=== PATIENT | female | born 1975 | race Caucasian/White ===

== ENCOUNTER 2020-03-09 01:02 | Outpatient (CLI) | payer BC, SELFPAY ==
[2020-03-10 18:47] LABS: SARS-CoV-2 RNA PCR Negative
== END 2020-03-09 01:03 | disposition home or self-care (01) ==
LOC: ANHCOVIDDT 01:02
PROVIDERS: PCP Physician Assistant; Visit Provider Otolaryngology
DX: Z01.812 Encounter for preprocedural laboratory examination (principal); Z11.59 Encounter for screening for other viral diseases
CPT/HCPCS: 87635; C9803; U0003

== ENCOUNTER 2020-03-12 00:47 | Day surgery (SDC) | payer BC, SELFPAY ==
[2020-02-27 16:16] VITALS: BMI 21.3
[2020-03-12] VITALS (8 sets, daily range): BP systolic 105–125; BP diastolic 55–80; PULSE 69–90; RESP 12–14; TEMP 36.8–36.9; O2SAT 83–100
--- NOTE | 2020-03-12 10:55 | WPDHPUPDATE1 ---
History and Physical Update Update Date/Time: 03/12/20 10:55 Left middle turbinate resection History and Physical has been reviewed, including an updated exam of the patient. There are NO changes in the patient's condition. Risks, benefits, and alternatives have been discussed and questions answered. Patient agrees to proceed with procedure.
--- NOTE | 2020-03-12 11:03 | WPDANESEPPF ---
Anes - Initial Pre Proc Eval Procedure: Operation Date: 03/12/20 12:30 Proposed Procedures p Removal Left Middle Turbinate - Kody Vo MD Date/Time: 03/12/20 11:03 Surgeon: Kody Vo MD Pre Op Diagnosis: Disorder Of The Nose Patient Data Age: 44 Gender: F Height: 5 ft 11 in Weight: 69.5 kg Allergies Allergy/AdvReac Type Severity Reaction Status Date / Time codeine Allergy Abdominal Verified 02/27/20 16:24 Pain Penicillins Allergy Rash Verified 02/27/20 16:24 Sulfa (Sulfonamide Allergy Rash Verified 02/27/20 16:24 Antibiotics) Home Medications Medication Instructions Recorded Confirmed Type fexofenadine-pseudoephedrine 1 tablet PO QAM PRN 02/27/20 02/27/20 History [Ednisha-D 24 Hour] Patient hx anesthesia problems: post op nausea/vomiting Family hx anesthesia problems: none PMFSH Past Medical History Medical History (Updated 03/12/20 @ 11:01 by Sav Moran MD) GERD (gastroesophageal reflux disease) Social History Social History Smoking status: Never smoker Spiritual care concerns: No Anes - Eval Final PreProcedure Day of Procedure 03/12/20 11:03 Patient weight: normal Heart: regular rate and rhythm Lungs: clear to auscultation Airway: Mallampati scale class II Neurological: alert and oriented Last oral intake: >/= 8 hours ASA classification: II Emergent: no Anesthetic plan: proceed Anesthesia type and monitoring: general LMA and ETT and standard monitoring Informed Consent: The patient's anesthetic plan and its attendant risks and benefits were discussed with the patient/family/POA. Questions were solicited and answers provided to the satisfaction of the patient/family/POA.
[2020-03-12] MEDS: ACETAMINOPHEN 500 MG TABLET 1000 MG PO (11:04)
[2020-03-12] MEDS: SCOPOLAMINE 1.5 MG PATCH TRANSDERM (11:10)
[2020-03-12] MEDS: LACTATED RINGERS 1,000 ML 30 ML IV CONT (11:11)
[2020-03-12] MEDS: CLINDAMYCIN 900 MG/NS 50 ML 900 MG/50 ML PIGGYBACK 50 MG IVPB (11:17)
[2020-03-12] MEDS: OXYMETAZOLINE HCL 0.05% NAS 15 ML BTL (*BKC) 1 SPRAY NASAL (11:27)
--- NOTE | 2020-03-12 11:41 | PM.PROC ---
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 Timeout performed, prepped and draped in sterile fashion. Afrin soaked cottonoids placed in the left nasal passage. Under endoscopic visualization, the left middle turbinate was visualized. It had been traumatized and was dangling in the nasal airway, still attached to the root. The turbinate was infiltrated with 1% lidocaine with 1:100k epinephrine. Turbinate scissors used to resect the middle turbinate. Bleeding was noted at the root and was cauterized with suction bovie at 15. Once hemostasis was obtained, the nasal airway was noted to be much more patent. Nasopore was placed over the cauterized surface. Care of the patient was returned to anesthesia who woke her up, removed LMA and transferred her to PACU for recovery in stable condition without complication. Anesthesia: GLMA Surgeon: Kody Vo MD Estimated blood loss (mL): 5 Drains: No Packing: Yes (nasopore on left) Pathology: yes (left middle turbinate) Complications: No immediate complications Condition: stable Disposition: same day
[2020-03-12] MEDS: LIDO 1%/EPINEPHRINE 1:100,000 20 ML VIAL 5 ML INFILTRATE (11:44)
== END 2020-03-12 13:25 | disposition home or self-care (01) ==
PROVIDERS: PCP Physician Assistant; Visit Provider Otolaryngology
PROC: (CPT 30999; principal; 2020-03-12 12:30)
DX: J34.89 Other specified disorders of nose and nasal sinuses (principal); Z87.81 Personal history of (healed) traumatic fracture
CPT/HCPCS: 30999; 88305; 88311; A9270; J1100; J2250; J2405; J2704; J3010; J7120

== ENCOUNTER 2022-01-21 18:07 | Emergency (ER) | payer BC, SELFPAY ==
[2022-01-21 18:18] VITALS: BP 128/66; PULSE 97; RESP 18; TEMP 37.2; O2SAT 100
--- NOTE | 2022-01-21 18:59 | ED.FEMALEGU ---
HPI - Female Genitourinary General Chief complaint: Urogenital-Female Stated complaint: uti complaint Time Seen by Provider: 01/21/22 19:00 Source: patient, RN notes reviewed and old records reviewed Mode of arrival: ambulatory Limitations: no limitations History of Present Illness HPI Narrative: 46-year-old female who presents to [facility] care with complaints of left-sided low back pain, painful urination which started on Thursday 3day history. Patient reports no fevers chills or sweats, denies any nausea or vomiting or any abdominal pain. Patient reports history of past UTI's has been taking AZO for her discomfort. Patient denies any vaginal discharge or itching, denies any concern for STD's. MD elicited complaint: UTI Pertinent past history: recurrent UTIs Onset (ago): day(s) (3) Severity scale (1-10): 3 Related Data Home Medications Medication Instructions Recorded Confirmed abemaciclib 100 mg tablet 100 tablet PO DIRECTED 01/21/22 01/21/22 (Verzenio) anastrozole 1 mg tablet 1 tablet DAILY 01/21/22 01/21/22 Allergies Allergy/AdvReac Type Severity Reaction Status Date / Time codeine Allergy Abdominal Verified 01/21/22 18:34 Pain Penicillins Allergy Rash Verified 01/21/22 18:34 Sulfa (Sulfonamide Allergy Rash Verified 01/21/22 18:34 Antibiotics) Review of Systems Review of Systems: CONSTITUTIONAL: Denies fever, chills, or sweats. EYES: Denies visual changes, redness, or discharge. ENT: Denies rhinorrhea, congestion, sore throat, or otalgia. CARDIOVASCULAR: Denies chest pain, palpitations, or edema. RESPIRATORY: Denies cough or dyspnea. GASTROINTESTINAL: Denies abdominal pain, nausea, vomiting, or diarrhea. GENITOURINARY: Positive for dysuria no visible hematuria. SKIN: Denies rash or itching. MUSCULOSKELETAL: Positive for left lower back pain flank area, no joint pain, or myalgia. NEUROLOGIC: Denies headache, numbness, or weakness. PSYCHIATRIC: Denies anxiety or depression. [facility] Past Medical History Medical History (Updated 01/22/22 @ 01:09 by Andreea Chaudhry NP) Breast cancer, left breast chemotherapy GERD (gastroesophageal reflux disease) Surgical History Surgical History (Updated 01/22/22 @ 01:09 by Andreea Chaudhry NP) History of bilateral mastectomy left axillary lymph nodes, left breast cancer reconstruction History of nasal surgery deviated septum Social History Social History (Updated 01/22/22 @ 01:10 by Andreea Chaudhry NP) Smoking status: Never smoker Alcohol intake: current Alcohol use details: rare Substance use: never Living arrangements: with family Gender identity (if verbalized by the patient): Female Spiritual care concerns: No Comments At time of signature, agree with nursing past medical, surgical, social and family history. There is no relevant family history pertinent to the presenting complaint Exam Narrative: GENERAL: Well-appearing, well-nourished, and in no acute distress. HEAD: Normocephalic, atraumatic. EYES: PERRLA and EOMI. ENT: Nares clear, no rhinorrhea or epistaxis. Mucous membranes moist.TM's normal with good light reflex, throat pink with no lesions or exudates or tonsil swelling NECK: Supple.no lymphadenopathy CHEST: Clear to auscultation. No respiratory distress.SAO2 100% on room air HEART: Regular rate and rhythm. No murmur heard. Normal peripheral pulses. ABDOMEN: Soft, nontender, nondistended, normal active bowel sounds.Positive for left flank pain on examination with no radiation EXTREMITIES: Normal range of motion. No edema. SKIN: Warm, dry, no rash. NEURO: No focal deficits. Alert and oriented x3. Course Course Level of Care: Express Care Visit Vital Signs Vital signs: Vital Signs Temperature 37.2 C 01/21/22 18:18 Pulse Rate 97 01/21/22 18:18 Respiratory Rate 18 01/21/22 18:18 Blood Pressure 128/66 01/21/22 18:18 Pulse Oximetry 100 01/21/22 18:18 Oxygen Delivery Room Air 01/21/22
== END 2022-01-21 19:19 | disposition home or self-care (01) ==
PROVIDERS: Emergency Provider Registered Nurse; PCP Physician Assistant
DX: N39.0 Urinary tract infection, site not specified (principal); K21.9 Gastro-esophageal reflux disease without esophagitis; Z85.3 Personal history of malignant neoplasm of breast; Z92.21 Personal history of antineoplastic chemotherapy
CPT/HCPCS: 81003; 87077; 87086; 87186; 99213; G0463

== ENCOUNTER 2022-11-04 19:10 | Emergency (ER) | payer BC, SELFPAY ==
--- NOTE | 2022-11-04 19:18 | ED.WOUNDLAC ---
HPI - Wound/Laceration General Chief Complaint: Wound/Laceration Stated Complaint: finger laceration/lt hand Time Seen by Provider: 11/04/22 19:18 Source: patient Mode of arrival: ambulatory Limitations: no limitations History of Present Illness HPI narrative: 47-year-old female presented for complaint of laceration to the palmar surface of the left index finger after injury today just [employer]. 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 She did not cleanse the site or apply anything prior to arrival. Denies numbness, tingling, weakness, or decreased ROM to the finger. Right hand dominant. Unsure of last tetanus. Related Data Home Medications Medication Instructions Recorded Confirmed abemaciclib 100 mg tablet 100 tablet PO DIRECTED 01/21/22 11/04/22 (Verzenio) anastrozole 1 mg tablet 1 tablet DAILY 01/21/22 11/04/22 Allergies Allergy/AdvReac Type Severity Reaction Status Date / Time codeine AdvReac Intermediate Abdominal Verified 11/04/22 19:13 Pain Penicillins AdvReac Mild Rash Verified 11/04/22 19:13 Sulfa (Sulfonamide AdvReac Mild Rash Verified 11/04/22 19:13 Antibiotics) Review of Systems Review of Systems: CONSTITUTIONAL: Denies body aches, fever, chills, or sweats. EYES: Denies visual changes, redness, or discharge. ENT: Denies rhinorrhea, congestion CARDIOVASCULAR: Denies chest pain, palpitations, or edema. RESPIRATORY: Denies cough or dyspnea. GASTROINTESTINAL: Denies abdominal pain, nausea, vomiting, or diarrhea. SKIN: per HPI MUSCULOSKELETAL: Denies back pain, joint pain, or myalgia. NEUROLOGIC: Denies headache, numbness, tingling, or weakness. [facility] Past Medical History Medical History Breast cancer, left breast chemotherapy GERD (gastroesophageal reflux disease) Surgical History Surgical History History of bilateral mastectomy left axillary lymph nodes, left breast cancer reconstruction History of nasal surgery deviated septum Social History Social History Smoking status: Never smoker Alcohol intake: current Alcohol use details: rare Substance use: never Living arrangements: with family Gender identity (if verbalized by the patient): Female Spiritual care concerns: No Comments At time of signature, I have reviewed and agree with nursing past medical, surgical, social and family history unless otherwise noted. Please see nursing chart for further information. There is no relevant family history pertinent to the presenting complaint Exam Narrative: GENERAL: Well-appearing HEAD: Normocephalic, atraumatic. EYES: conjunctivae clear, and EOMI. ENT: Mucous membranes moist. Oropharynx without edema, erythema or lesions. CHEST: Clear to auscultation. HEART: Regular rate and rhythm. SKIN: Warm, dry. 1.5 cm linear transverse laceration to palmar surface of middle phalanx of left 2nd digit. Full ROM. Sensation intact. Cap refill <3 seconds. NEURO: Alert and oriented x3. Course Course Emergency Course: Patient is aware of diagnosis, understands and agrees to treatment plan. Anticipatory guidance given. Patient agrees to follow-up as directed and is aware of reasons to seek care at the emergency department. Portions of this record may have been created with voice recognition software Level of Care: Express Care Visit Vital Signs Vital signs: Vital Signs Temperature 97.0 F L 11/04/22 19:20 Pulse Rate 95 11/04/22 19:20 Respiratory Rate 16 11/04/22 19:20 Blood Pressure 136/71 11/04/22 19:20 Pulse Oximetry 98 11/04/22 19:20 Oxygen Delivery Room Air 11/04/22 19:20 Temperature 97.0 F L 11/04/22 19:20 Pulse Rate 95 11/04/22 19:20 Respiratory Rate 16 11/04/22 19:20 Blood Pressure 136/71 11/04/22 19:20 Pulse Oximetry 98 11/04/22 19:20 Oxygen Deliver
[2022-11-04 19:20] VITALS: BP 136/71; PULSE 95; RESP 16; TEMP 36.1; O2SAT 98
[2022-11-04] MEDS: TETANUS,DIPHTHERIA,AC PERTUSSIS ADULT (0.5 ML) BOOSTRIX IM (19:31)
== END 2022-11-04 19:50 | disposition home or self-care (01) ==
PROVIDERS: Emergency Provider Nurse Practitioner Family; PCP Physician Assistant
DX: S61.211A Laceration without foreign body of left index finger without damage to nail, initial encounter (principal); W27.4XXA Contact with kitchen utensil, initial encounter; Z23 Encounter for immunization; K21.9 Gastro-esophageal reflux disease without esophagitis; Z85.3 Personal history of malignant neoplasm of breast; Z90.13 Acquired absence of bilateral breasts and nipples
CPT/HCPCS: 12001; 90471; 90715; 96372; 99213; G0463

== ENCOUNTER 2024-10-01 14:08 | Emergency (ER) | payer BC, SELFPAY ==
--- OUTSIDE RECORDS SUMMARY | 2024-10-01 14:12 | XMS_ITS | Clinical Summary ---
Author Organization [facility] Address [address] [place] [id number] Care Team Providers [employer] Person Name Role Phone Kyle Nolan PA-C Primary Care Provider [phone] Allergies Active Allergy Reactions Criticality Noted Date Comments Codeine Vomiting 03/28/2018 Penicillins Rash Low 03/28/2018 Sulfa Antibiotics Rash Low 03/28/2018 Medications hydrocodone-acetami nophen (NORCO) 5-325 MG tablet Take 1 tablet by mouth every 4 (four) hours as needed for Pain. 20 tablet 9 Active ondansetron (ZOFRAN ODT) 4 MG disintegrating tablet Take 1 tablet (4 mg total) by mouth every 8 (eight) hours as needed for Nausea. 15 tablet 9 Active Family History Medical History Relation Comments Cancer Father prostate CA Relation Status Comments Father Social History Tobacco Use Types Packs/Day Years Used Date Smoking Tobacco: Never Smokeless Tobacco: Never Alcohol Use Standard Drinks/Week Comments No 0 (1 standard drink = 0.6 oz pur e alcohol) Comments No Sex and Gender Information Value Date Recorded Sex Assigned at Not on file Legal Sex Female 5:35 PM CDT Gender Identity Not on file Sexual Orientation Not on file Last Filed Vital Signs Vital Sign Reading Time Taken Comments Blood Pressure 137/76 01/14/2019 3:40 PM CDT Pulse 89 01/14/2019 3:40 PM CDT Temperature 37.2 C (99 F) 01/14/2019 3:40 PM CDT Respiratory Rate 18 01/14/2019 3:40 PM CDT Oxygen Saturation 96% 01/14/2019 3:40 PM CDT Inhaled Oxygen Concentration - - Weight 73.4 kg (161 lb 13.1 oz) 01/14/2019 9:56 AM CDT Height 179.1 cm (5' 10.5 ) 01/14/2019 9:56 AM CD T Body Mass Index 22.89 01/14/2019 9:56 AM CDT Plan of Treatment Health Maintenance Due Date Last Done Comments Cervical Cancer Screening Pa p Smear (Age 30 to 64) Every 3 Years 1975 Colorectal Cancer Screening Colonoscopy (10 Years) 1975 Annual Physical 1978 Hepatitis C 1993 DTaP, Tdap and Td Vaccines ( 1 - Tdap) 1994 Hepatitis B Vaccines (1 of 3 - 19+ 3-dose series) 1994 Cervical Cancer Screening Pa p with HPV Testing (Age 30 to 64) Every 5 Years 2005 Cervical Cancer Screening with HPV 2005 Mammogram Screening 2015 COVID-19 Vaccine (2023-2 5 season) 2024 Influenza Adult (#1) 2024 Meningococcal B Vaccine Aged Out No l onger eligible based on patient's age to complete this topic Meningococcal Vaccine Aged Out No tigre galindo eligible based on patient's age to complete this topic Pneumococcal Vaccine: Pediat rics (0 to 5 Years) and At-Risk Patients (6 to 64 Years) Aged Out No longer eligible b ased on patient's age to complete this topic RSV Immunizations Under 20 Months Aged Out No longer eligible based on patient's age to complete this topic [place] [address] [facility] Care Teams [employer] Counter Person Relationship Specialty Start Date End Date Kyle Nolan PA-C PCP - General PHYSICIAN BARIATRIC PROGRAM COORDINATOR 03/28/18
--- OUTSIDE RECORDS SUMMARY | 2024-10-01 14:12 | XMS_ITS | Referral Summary ---
Author Organization [facility] Medical Office Building Address [facility] [place] [address] Care Team Providers Care Radial Arm Saw Operator Name Role Phone An Kyle Wilber ALEJANDRA Primary Care Provider [phone] Abram Antunez MD Unavailable [phone] Fidelia Horton MD Unavailable + [phone] Macario Crowley MD PhD Unavailable Jj Jones MD Unavailable [phone] Chary Davidson MD Unavailable [phone] Encounters Date Type Department Care Team Description 09/14/2024 6:20 PM ELECTRIC DISTRIBUTION ENGINEER E-Visit [facility] Virtual Care [address] [place] [address] Evelyne Nunez MD E-Visit for Urinary Tract Infection 09/14/2024 Patient Self-Triage [facility] [address] [place] [address] Mychart, Generic Provider from Last 3 Months Allergies Active Allergy Reactions Criticality Noted Date Comments Codeine Vomiting,Stomach upset Low 03/28/2018 Stomach/GI Upset Doxycycline Stomach upset Low 10/02/2023 Penicillins Rash Medium 03/28/2018 Rash Sulfa (Sulfonamide Antibiotics) Rash Medium 03/28/2018 Docetaxel Chest tightness Medium 12/13/2020 Medications calcium carbonate-vitam in D3 1,250 mg (500 mg elemental)-125 unit per tablet Take 1 tablet by mouth daily Active cetirizine (ZyrTEC) 10 mg tablet Take 1 tablet (10 mg total) by mouth daily as needed Active ibuprofen (ADVIL,MOTRIN) 600 mg tablet Take 1 tablet (600 mg total) by mouth every 6 (six) hours as needed for pain (pain) 30 tablet 4 Active Additional Information Patient not taking.Reported on 05/20/2024 anastrozole (ARIMIDEX) 1 mg tabletIndicatio ns:Malignant neoplasm of upper-inner quadrant of left breast in female, estrogen receptor positive (HCC) TAKE 1 TABLET(1 MG) BY MOUTH DAILY 30 tablet 3 Active nitrofurantoin monohydrate (Macrobid) 100 mg capsule Take 1 capsule (100 mg total) by mouth 2 (two) times a day for 7 days 14 capsule 5 09/21/19 Active Problems Problem Noted Date Diagnosed Date Hyperleukocytosis 10/22/2022 Mouth sore secondary to chemotherapy 10/22/2022 Periodic fever (CMS/HCC) 10/22/2022 Acute non-recurrent maxillary sinusitis 10/23/19 Assessment & Plan (10/22/2022 3:42 PM ELECTRIC DISTRIBUTION ENGINEER): Saline and meds as ordered Personal history of radiation therapy 06/24/2021 Persons encountering health services in other specified circumstances 11/28/2020 Malignant neoplasm of upper- inner quadrant of left breast in female, estrogen receptor positive (CMS/HCC) 06/27/2020 Cancer Staging:Pathologic stage from 11/13/2020:No Stage Recommended(ypT2, pN3, cM0, G2, ER+, GA+, HER2-) - Signed by Chary Davidson MD on 03/18/2021 Routine general medical exam ination at a health care facility 09/01/2019 Assessment & Plan (11/27/2021 9:09 AM CDT): HEALTHCARE MAINTENANCE updated, EKG NSR, cleared for surgery Resolved Problems Problem Noted Date Diagnosed Date Resolved Date Malignant neoplasm of female breast 10/22/2022 12/01/2023 Immunizations Name Administration Dates Next Due Influenza, Quadrivalent, Jaquelin l Culture-based MDCK, Preservative Free, Antibiotic Free, Intramuscular 06/27/2020 Influenza, Unspecified 06/24/2022(Deferr ed: Patient decision),08/15/2019(Deferred: Patient decision),08/15/2018(Deferred: Patient decision) Social History Tobacco Use Types Packs/Day Years Used Date Smoking Tobacco: Never Smokeless Tobacco: Never Tobacco Cessation:Counseling Given: Not Answered Alcohol Use Standard Drinks/Week Comments Yes 0 (1 standard drink = 0.6 oz pur e alcohol) AUDIT-C Answer Date Recorded Q1: How often do you have a drink containing alc ohol? Monthly or less 05/20/2024 Q2: How many drinks containi ng alcohol do you have on a typical day when you are drinking? 1 or 2 05/20/2024 Q3: How often do you have si x or more drinks on one occasion? Less than monthly 05/20/2024 PHQ-2 Answer Date Recorded PHQ-2 Total Score (If total score is 3 or more points, staff should administer the PHQ-9) 0 11/27/2021 Personal Safety Answer Date Recorded Have you ever been in or are you currently in a harmful physical or emotional relationship or is someone making you feel afraid or unsafe? Denies 03/10/2024 Comments No Sex and Gender Information Value Date Recorded Sex Assigned at Not on file 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 ELECTRIC DISTRIBUTION ENGINEER Gender Identity Not on file Sexual Orientation Not on file Last Filed Vital Signs Vital Sign Reading Time Taken Comments Blood Pressure 135/47 06/29/2024 3:54 PM ELECTRIC DISTRIBUTION ENGINEER Pulse 86 06/29/2024 3:54 PM ELECTRIC DISTRIBUTION ENGINEER Temperature 36.8 C (98.2 F) 05/20/2024 4:09 PM CDT Respiratory Rate 18 05/20/2024 4:09 PM CDT Oxygen Saturation 100% 06/29/2024 3:54 PM ELECTRIC DISTRIBUTION ENGINEER Inhaled Oxygen Concentration - - Weight 77.1 kg (170 lb) 06/29/2024 3:54 PM ELECTRIC DISTRIBUTION ENGINEER Height 180.3 cm (5' 10.98 ) 03/25/2024 1:25 PM C DT Body Mass Index 23.72 03/25/2024 1:25 PM CDT Plan of Treatment Not on file Medical Devices Implanted Type Area Performance Improvement Analyst Device Identifier Shelf Expiration Date Model / Serial / Lot [employer] Implant Breast High Profile Smooth Memorygel Boost 740cc Gel [id number] - [id number] Implanted:Qty: 1 on 03/18/2022 by Alex Carranza, DO at [facility] Right: Breast [employer] 12/02/2026 [id number] / / [employer] Implant Breast High Profile Smooth Memorygel Boost 685cc Gel [id number] - [id number] Implanted:Qty: 1 on 03/18/2022 by Alex Carranza, DO at [facility] Left: Breast [employer] 12/29/2026 [id number] / / Procedures Procedure Name Priority Date/Time Associated Diagnosis Comments PAP AND HIGH RISK HPV, REFLEX TO GENOTYPING Routine 03/10/2024 10:44 AM CDT SCREENING MAMMOGRAM BILATERAL W VLADISLAV 05/29/2020 6:56 AM CDT from Last 3 Months or Most Recently Relevant to Health Maintenance Results * Pap and High Risk HPV and Genotyping (Cytology Component) (03/10/2024 10:44 AM CDT) Pap test 03/10/2024 10:4 4 AM CDT 03/10/2024 5:31 PM CDT Narrative 03/18/2024 11:57 AM CDT EPIC results best viewed via link to PDF [facility] [place] [address] Note to Patients: This report may contain a detailed description of human tissue sent by a health care provider to the laboratory for pathologic evaluation. The content of this report is essential for diagnosis and may provide important critical findings. This information may be unfamiliar to patients to review without a medical professional present. It is advised that the patient review this report in the presence of a health care provider who can answer questions and explain the details. CYTOPATHOLOGY REPORT FINAL Patient Name: TORRI HONGChet Gender: F : 1975 (Age: 48) Address: [address] [place] [address] [place] [address] Hospital #: [id number] Service: Surgery Location: Patient Type: EMILY JENSEN OUTP Taken: 03/10/2024 Received: 03/10/2024 Accessioned: 03/10/2024 Reported: 03/18/2024 Physician(s): Chary Jefferson M.D. FINAL INTERPRETATION SOURCE OF SPECIMEN Liquid based Thin Prep pap with HPV: STATEMENT OF ADEQUACY - Satisfactory for evaluation - No endocervical/transformation zone sample present in a post menopausal patient GENERAL CATEGORIZATION: - Negative for squamous intraepithelial lesion or malignancy Comments (Normal-Negative for High Risk HPV) HPV HR 16- Not detected HPV HR 18-Not detected HPV HR non 16/18- Not detected Interpretive Data Nucleic acid amplification for detection of high-risk Human Papilloma virus (HPV) is performed by the Giovanni Damon 6800 HPV test. This assay specifically detects HPV- 16 and HPV-18 genotypes. The following HPV genotypes are detected as high-risk HPV: HPV-31, 33, 35, 39, 45, 51, 52, 56, 58, 59, 66, and 68. This assay has been approved by the [place] Food and Drug Administration for detection of HPV in cervical specimens collected by a physician using an endocervical brush/spatula or cervical broom and placed in the ThinPrep Pap Test PreservCyt collection containers. The performance characteristics of this test have been verified by the [facility] Molecular Infectious Disease laboratory. Correlate with reported cytology results, as applicable. Interpretive data last revised 23 This specimen has been rescreened in accordance with this laboratory's Manager Ed Program. /03/18/2024 11:57 SURINDER Viveros(ASCP) Report Electronically Reviewed and Signed Out By SURINDER Harrison MS (ASCP) 03/18/2024 11:57:37 Cervicovaginal Cytology (Pap Test) Disclaimer: The Pap test is a screening test used to detect cervical cancer and its precursors; it is not a diagnostic procedure. False negative and false positive results do occur. Pap test results should be interpreted in the context of pertinent clinical information and biopsy results as indicated. [facility] Clinical Laboratory Improvement Amendments (CLIA) mandate that cytologic and histologic results be correlated for laboratory quality assurance lead & improvement standards. FOR ALL HIGH-GRADE CASES we request submission of follow-up histological material and/or reports that have not been previously provided so that we may fulfill said required standards. Gross Description A. Liquid based Thin Prep pap with HPV: Cervical/vaginal - Screening ThinPrep Clinical Diagnosis and History Last Menstrual Period: unknown Menstrual History: Post-menopausal The patient is a 48 year old female with insufficient Pap in the setting of atrophy. Report Images and scanned documents, if included only viewable in PDF version The performance characteristics of some immunohistochemical stains, in-situ hybridization and fluorescence in-situ hybridization tests and immunophenotyping by flow cytometry cited in this report (if any) were determined by the Surgical Pathology Department at [facility] as part of an ongoing quality assurance supervisor body program and in compliance with federally mandated regulations drawn from the Clinical Laboratory Improvement Act of 1988 (CLIA '88). Some of these tests rely on the use of analyte specific reagents and are subject to specific labeling requirements by the US Food and Drug Administration. Such diagnostic tests may only be performed in a facility that is certified by the Department of Health and Human Services as a high complexity laboratory under CLIA '88. The FDA has determined that such clearance or approval is not necessary. This test is used for clinical purposes. It should not be regarded as investigational or for research. Nevertheless, federal rules concerning the medical use of analyte specific reagents require that the following disclaimer be attached to the report: This test was developed and its performance characteristics determined by the Surgical Pathology Department of [facility]. It has not been cleared or approved by the U. S. Food and Drug Administration. Nancy Jefferson MD LAB CYTOLOGY ORDERABLES Fi nal Result * Screening Mammogram Bilateral W Vladislav (05/29/2020 6:56 AM CDT) Anatomical Region Laterality Modality Breast Bilateral Mammography 05/29/2020 7:12 AM CDT Narrative 05/29/2020 8:19 AM CDT Patient Name: TORRI HONG Osbaldo Ordering Dr: Marshal Merritt MD D.O.B: 1975 Exam Date: 05/29/20 0656 Age: 45 Sex: Female MR#: [id number] Loc: RADIOLOGY REPORT Order #[id number] [facility] Jann Bilat Screening 3D Signed - MG BILATERAL DIGITAL SCREENING MAMMOGRAM 3D/2D WITH MEDIOLATERAL OBLIQUE CRANIOCAUDAL: 05/29/2020 The study was acquired using full field digital technology and interpreted from soft copy. 2D digital mammographic views, as well as 3D digital tomosynthesis were performed in the CC and MLO projections. CLINICAL: Routine mammogram. Patient denies any problems. Aunt with breast cancer. No personal history of breast cancer. COMPARISONS: Comparison is made to exams dated: 02/24/2019 mammogram, 10/05/2018 mammogram, and 01/20/2018 mammogram - [facility]. BREAST TISSUE: The tissue of both breasts is extremely dense, which lowers the sensitivity of mammography. FINDINGS: No new suspicious findings are identified in the right breast on mammogram. Scattered benign appearing microcalcifications are unchanged in the right breast. There are also scattered benign-appearing microcalcifications in the left breast. A new possible area of architectural distortion is identified in the upper outer left breast at middle depth. IMPRESSION: BI-RAD 0 ADDITIONAL IMAGING EVALUATION NEEDED 1. Possible area of architectural distortion in the upper outer left breast at middle depth. Further evaluation with left unilateral diagnostic mammogram and possible sonogram recommended. 2. No new suspicious findings in the right breast on mammogram. Annual screening mammography recommended. The patient has been or will be contacted. Electronically signed by: Neo Jeffries rl/:05/29/2020 08:19:44 Washtub Worker Helper: Tabatha Dubon)Britton), [facility] letter sent: Additional Imaging Reading location: BI-RADS: 0 Additional Imaging Evaluation Needed REPORT ELECTRONICALLY SIGNED IN OTHER VENDOR SYSTEM Resulting Agency Comment O Procedure Note Neo Almanzar MD - 05/29/2020 Patient Name: HONGTORRI Dr: Marshal Merritt MD D.O.B: 1975 Exam Date: 05/29/20 0656 Age: 45 Sex: Female MR#: [id number] Loc: RADIOLOGY REPORT Order #[id number] [facility] Jann Bilat Screening 3D Signed - MG BILATERAL DIGITAL SCREENING MAMMOGRAM 3D/2D WITH MEDIOLATERAL OBLIQUE CRANIOCAUDAL: 05/29/2020 The study was acquired using full field digital technology andinterpreted from soft copy. 2D digital mammographic views, as well as 3D digital tomosynthesis were performed in the CC and MLO projections. CLINICAL: Routine mammogram. Patient denies any problems. Aunt withbreast cancer. No personal history of breast cancer. COMPARISONS: Comparison is made to exams dated: 02/24/2019 mammogram,10/05/2018 mammogram, and 01/20/2018 mammogram - [facility]. BREAST TISSUE: The tissue of both breasts is extremely dense, whichlowers the sensitivity of mammography. FINDINGS: No new suspicious findings are identified in the right breaston mammogram. Scattered benign appearing microcalcifications are unchangedin the right breast. There are also scattered benign-appearingmicrocalcifications in the left breast. A new possible area of architectural distortion is identified in the upper outer left breast at middle depth. IMPRESSION: BI-RAD 0 ADDITIONAL IMAGING EVALUATION NEEDED 1. Possible area of architectural distortion in the upper outer leftbreast at middle depth. Further evaluation with left unilateral diagnosticmammogram and possible sonogram recommended. 2. No new suspicious findings in the right breast on mammogram. Annual screening mammography recommended. The patient has been or will be contacted. Electronically signed by: Neo Jeffries rl/:05/29/2020 08:19:44 Washtub Worker Helper: Tabatha BERG (Rafael)(Gonzales), [facility] letter sent: Additional Imaging Reading location: BI-RADS: 0 Additional Imaging Evaluation Needed REPORT ELECTRONICALLY SIGNED IN OTHER VENDOR SYSTEM Marshal Merritt MD IM MAMMO PROCEDURES F inal Result from Last 3 Months or Most Recently Relevant to Health Maintenance Insurance [facility] Advance Directives For more information, please contact: [phone] * Full Code (Latest Code Status on File) Date Activated Date Inactivated Comments 03/10/2024 12:35 PM 03/10/2024 8:09 PM Care Teams Radial Arm Saw Operator Relationship Specialty Start Date End Date Kyle Nolan PA PCP - General Family Medicine 06/27/20 Abram Antunez MD [address] [place] [address] Surgeon Surgery 06/28/20 Fidelia Horton MD [address] [place] [address] Tool Worker Obstetrics and Gynecology 01/22/22 Macario Crowley MD PhD [address] [facility], [facility] [address] [place] [address] Medical Oncologist/Hourly Manager Medical Oncology 06/20/22 Jj Jones MD [address] [facility] [address] [place] [address] Surgeon General Surgery 12/29/22 Chary Davidson MD [address] [facility] [address] [place] [address] Radiation Oncologist Radiation Oncology 12/15/23
--- OUTSIDE RECORDS SUMMARY | 2024-10-01 14:12 | XMS_ITS | Encounter Summary ---
Author Organization [facility] Address [address] [place] [address] Phone Care Team Providers Care Licensed Optical Dispenser Name Role Phone Kyle Nolan Primary Care Provider [phone] JUSTYN Graves Jr., Robert James Primary Care Provide r Kyle Nolan Primary Care Provider [phone] Abram Antunez MD Unavailable [phone] Theo Sims MD PhD Unavailable [phone] Chary Davidson MD Unavailable [phone] Marshal Merritt MD Unavailable [phone] Sita Cadet MD Unavailable [phone] Fidelia Horton MD Unavailable + [phone] Macario Crowley MD PhD Unavailable Jj Jones MD Unavailable [phone] Chary Davidson MD Unavailable [phone] Encounter Details Date Type Department Care Team (Latest Contact Info) Description 05/19/2020 Orders Only [facility] Scanning, Provider Social History Tobacco Use Types Packs/Day Years Used Date Smoking Tobacco: Never Smokeless Tobacco: Never Alcohol Use Standard Drinks/Week Comments Yes 0 (1 standard drink = 0.6 oz pur e alcohol) PHQ-2 Answer Date Recorded PHQ-2 Score 0 09/06/2019 Comments No Sex and Gender Information Value Date Recorded Sex Assigned at Not on file 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 GLOVE TAGGER Gender Identity Not on file Sexual Orientation Not on file documented as of this encounter Plan of Treatment Not on file documented as of this encounter Procedures Procedure Name Priority Date/Time Associated Diagnosis Comments SCAN - PATHOLOGY 05/19/2020 documented in this encounter Results * SCAN - PATHOLOGY (05/19/2020) us Provider Scanning Final Result documented in this encounter Visit Diagnoses Not on filedocumented in this encounter Care Teams Licensed Optical Dispenser Relationship Specialty Start Date End Date Kyle Nolan PA PCP - General 10/05/18 06/24/20 Burton Graves Jr., PA PCP - General 06/25/20 06/26/20 Kyle Nolan PA PCP - General Family Medicine 06/27/20 Abram Antunez MD [address] [place] [address] [id number] Surgeon Surgery 06/28/20 Theo Sims MD PhD [address] [place] [address] [phone] Medical Oncologist/Credit Processor Medical Oncology 06/28/20 08/06/21 Chary Davidson MD [address] [place] [id number] Radiation Oncologist Radiation Oncology 03/18/21 Marshal Merritt MD [address] [facility] [address] [place] [address] Consulting Physician Obstetrics and Gynecology 03/18/21 01/21/22 Sita Cadet MD [address] [facility] [address] [place] [address] Medical Oncologist/Credit Processor Medical Oncology 12/19/21 12/28/22 Fidelia Horton MD [address] [facility] [address] [place] [address] Hand Binder Stripper Obstetrics and Gynecology 01/22/22 Macario Crowley MD PhD [address] [facility], [facility] [address] [place] [address] Medical Oncologist/Credit Processor Medical Oncology 06/20/22 Jj Jones MD [facility] [address] [place], [place] [id number] Surgeon General Surgery 12/29/22 Chary Davidson MD [address] [place] [address] [address] [place], [place] [address] Radiation Oncologist Radiation Oncology 12/15/23 documented as of this encounter
--- OUTSIDE RECORDS SUMMARY | 2024-10-01 14:12 | XMS_ITS | Encounter Summary ---
Author Organization [facility] Address [address] [place] [address] Phone Care Team Providers Care Associate Professor Of Automation Name Role Phone Kyle Nolan Primary Care Provider [phone] JUSTYN Graves Jr., Robert James Primary Care Provide r Kyle Nolan Primary Care Provider [phone] Abram Antunez MD Unavailable [phone] Theo Sims MD PhD Unavailable [phone] Chary Davidson MD Unavailable [phone] Marshal Merritt MD Unavailable [phone] Sita Cadet MD Unavailable + [phone] Fidelia Horton MD Unavailable + [phone] Macario Crowley MD PhD Unavailable Jj Jones MD Unavailable [phone] Chary Davidson MD Unavailable [phone] Encounter Details Date Type Department Care Team (Latest Contact Info) Description 06/19/2020 Orders Only [facility] Scanning, Provider [...] on file 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 CAD DESIGNER DRAFTER Gender Identity Not on file Sexual Orientation Not on file documented as of this encounter Plan of Treatment Not on file documented as of this encounter Procedures Procedure Name Priority Date/Time Associated Diagnosis Comments SCAN - PATHOLOGY 06/19/2020 documented in this encounter Results * SCAN - PATHOLOGY (06/19/2020) us Provider Scanning Final Result documented in this encounter Visit Diagnoses Not on filedocumented in this encounter Care Teams Associate Professor Of Automation Relationship Specialty Start Date End Date Kyle Nolan PA PCP - General 10/05/18 06/24/20 Burton Graves Jr., PA PCP - General 06/25/20 06/26/20 Kyle Nolan PA PCP - General Family Medicine 06/27/20 Abram Antunez MD [address] [place] [address] [id number] Surgeon Surgery 06/28/20 Theo Sims MD PhD [address] [place] [address] [id number] Medical Oncologist/Nib Adjuster Medical Oncology 06/28/20 08/06/21 Chary Davidson MD [address] [place] [address] [id number] Radiation Oncologist Radiation Oncology 03/18/21 Marshal Merritt MD [address] [facility] [address] [place] [address] Consulting Physician Obstetrics and Gynecology 03/18/21 01/21/22 Sita Cadet MD [address] [facility] [address] [place] [address] Medical Oncologist/Nib Adjuster Medical Oncology 12/19/21 12/28/22 Fidelia Horton MD [address] [facility] [address] [place] [address] It Help Desk Analyst Obstetrics and Gynecology 01/22/22 Macario Crowley MD PhD [address] [facility], [facility] [address] [place] [address] Medical Oncologist/Nib Adjuster Medical Oncology 06/20/22 Jj Jones MD [facility] [address] [place], [place] [phone] Surgeon General Surgery 12/29/22 Chary Davidson MD [address] [place] [address] [address] [place], [place] [address] Radiation Oncologist Radiation Oncology 12/15/23 documented as of this encounter
--- OUTSIDE RECORDS SUMMARY | 2024-10-01 14:12 | XMS_ITS | Clinical Summary ---
Author Organization [facility] at the Medical Office Building Address [address] [place] [address] Care Team Providers Care Tower Supervisor Name Role Phone Kyle Nolan Primary Care Provider [phone] Abram Antunez MD Unavailable [phone] Fidelia Horton MD Unavailable [phone] Macario Crowley MD PhD Unavailable Jj Jones MD Unavailable [phone] Chary Davidson MD Unavailable [phone] Allergies Active Allergy Reactions Criticality Noted Date [...] as needed for pain (pain) 30 tablet 07/25/202 4 Active Additional Information Patient not taking.Reported on 05/20/2024 anastrozole (ARIMIDEX) 1 mg tabletIndicatio ns:Malignant neoplasm of upper-inner quadrant of left breast in female, estrogen receptor positive (HCC) TAKE 1 TABLET(1 MG) BY MOUTH DAILY 30 tablet 3 4 Active nitrofurantoin monohydrate (Macrobid) 100 mg capsule Take 1 capsule (100 mg total) by mouth 2 (two) times a day for 7 days 14 capsule 5 09/21/19 25 Active Problems Problem Noted Date Diagnosed Date Hyperleukocytosis 10/22/2022 Mouth sore secondary to chemotherapy 10/22/2022 Periodic fever (CMS/HCC) 10/22/2022 Acute non-recurrent maxillary sinusitis 10/23/19 23 Assessment & Plan (10/22/2022 3:42 PM TRUST EVALUATION SUPERVISOR): Saline and meds as ordered Personal history of radiation therapy 06/24/2021 Persons encountering health services in other specified circumstances 11/28/2020 Malignant neoplasm of upper- inner quadrant of left breast in female, estrogen receptor positive (CMS/HCC) 06/27/2020 Cancer Staging:Pathologic stage from 11/13/2020:No Stage Recommended(ypT2, pN3, cM0, G2, ER+, FL+, HER2-) - Signed by Chary Davidson MD on 03/18/2021 Routine general medical exam ination at a health care facility 09/01/2019 Assessment & Plan (11/27/2021 9:09 AM CDT): HEALTHCARE MAINTENANCE updated, EKG NSR, cleared for surgery Resolved Problems Problem Noted Date Diagnosed Date Resolved Date Malignant neoplasm of female breast 10/22/2022 12/01/2023 Encounters Date Type Department Care Team Description 09/14/2024 6:20 PM TRUST EVALUATION SUPERVISOR E-Visit [facility] Virtual Care [address] [place] [phone] Evelyne Nunez MD E-Visit for Urinary Tract Infection 09/14/2024 Patient Self-Triage [facility] [place] [address] Mychart, Generic Provider from Last 3 Months Immunizations Name Administration Dates Next Due Influenza, Quadrivalent, Jaquelin l Culture-based MDCK, Preservative Free, Antibiotic Free, Intramuscular 06/27/2020 Influenza, Unspecified 06/24/2022(Deferr ed: Patient decision),08/15/2019(Deferred: Patient decision),08/15/2018(Deferred: Patient decision) Surgical History Surgery Date Site/Laterality Comments NASAL SEPTUM SURGERY 2017 & 2019 BREAST LUMPECTOMY 04/17/2003 - 05/16/2003 BREAST BIOPSY 10/08/2015 Right MASTECTOMY 08/17/2020 - 08/16/2021 Bilateral OOPHORECTOMY 02/15/2024 - 03/16/2024 SALPINGECTOMY Medical History Medical History Date Comments Breast cancer (HCC) History of chemotherapy last 2020 PONV (postoperative nausea and vomiting) no vomiting, only nausea Motion sickness Personal history of radiation therapy 06/24/2021 Hyperleukocytosis 10/22/2022 Allergic rhinitis Family History Medical History Relation Name Comments Prostate cancer Father Prostate cancer Maternal Grandfather Diabetes Mother's Sister Relation Name Status Comments Father Alive Maternal Grandfather Mother Alive Mother's Sister Social History Tobacco Use Types Packs/Day Years [...] on file 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 TRUST EVALUATION SUPERVISOR Gender Identity Not on file Sexual Orientation Not on file Obstetrics History Para Term AB IAB SAB Ectopic Multiple Livin g Live Births 2 2 2 0 2 Date Outcome GA Total Labor Labor/2nd/3rd Weight Sex Type Anes PTL Eugenia A1 A5 Name Clin Term Term Comments x 2 Menarche 16 First delivery 29 Last Filed Vital Signs Vital Sign Reading Time Taken Comments Blood Pressure 135/47 06/29/2024 3:54 PM TRUST EVALUATION SUPERVISOR Pulse 86 06/29/2024 3:54 PM TRUST EVALUATION SUPERVISOR Temperature 36.8 C (98.2 F) 05/20/2024 4:09 PM CDT Respiratory Rate 18 05/20/2024 4:09 PM CDT Oxygen Saturation 100% 06/29/2024 3:54 PM TRUST EVALUATION SUPERVISOR Inhaled Oxygen Concentration - - Weight 77.1 kg (170 lb) 06/29/2024 3:54 PM TRUST EVALUATION SUPERVISOR Height 180.3 cm (5' 10.98 ) 03/25/2024 1:25 PM C DT Body Mass Index 23.72 03/25/2024 1:25 PM CDT Plan of Treatment Health Maintenance Due Date Last Done Comments Colon Cancer Screening-Colonoscopy 1975 Hepatitis C Screening 1975 Pneumococcal vaccine <65 (1 of 2 - PCV) 1981 Hepatitis B Screening 1993 Zoster Vaccine (1 of 2) 1994 Breast Cancer Screening-Mammogram 05/29/2021 05/29/2020, 02/24/2019, 01/20/2018, Additional history exists Depression Screening 11/27/2022 11/27/2021, 09/06/19 20 Regular Well Visit/Exam 18-64 03/24/2024, 11/27/2021, 09/06/2019 Influenza Vaccine (#1) 2024 06/27/2020 Cervical Cancer Screening 03/10/20252023, 03/10/2024, 02/04/2024, Additional history exists DTaP/Tdap/Td Vaccine (2 - Td or Tdap) 11/04/2032 11/04/2022 Medical Devices Implanted Type Area Senior Corporate Accountant Device Identifier Shelf Expiration Date Model / Serial / Lot [employer] Implant Breast High Profile Smooth Memorygel Boost 740cc Gel [id number] - [id number] Implanted:Qty: 1 on 03/18/2022 by Alex Carranza, DO at [facility] Right: Breast [employer] 12/02/2026 [id number] / / [employer] Implant Breast High Profile Smooth Memorygel Boost 685cc Gel [id number] - [id number] Implanted:Qty: 1 on 03/18/2022 by Alex Carranza, DO at [facility] Left: Breast [employer] 12/29/2026 [id number] / / Procedures Procedure Name Priority Date/Time [...] results best viewed via link to PDF [facility] [place] [address] Note to Patients: This report may contain [...] details. CYTOPATHOLOGY REPORT FINAL Patient Name: TORRI HONG Gender: F : 1975 (Age: 48) Address: [address] [place] [address] [place] [address] [facility] #: [id number] Service: Surgery Location: Patient Type: E [facility] OUTP Taken: 03/10/2024 Received: 03/10/2024 Accessioned: 03/10/2024 [...] this test have been verified by the [facility] [place] [facility] Molecular Infectious Disease laboratory. Correlate with reported cytology results, as applicable. Interpretive data last revised 23 This specimen has been rescreened in accordance with this laboratory's Surgery Center Administrator Program. /03/18/2024 11:57 SURINDER Viveros(ASCP) Report Electronically [...] clinical information and biopsy results as indicated. [facility] Clinical Laboratory Improvement Amendments (CLIA) mandate that cytologic and histologic results be correlated for laboratory machined parts quality inspector & improvement standards. FOR ALL HIGH-GRADE CASES [...] determined by the Surgical Pathology Department at [facility] [place] [facility] as part of an ongoing quality improvement analyst program and in compliance with federally mandated [...] determined by the Surgical Pathology Department of [facility] [place] [facility]. It has not been cleared or approved by the U. S. Food and Drug Administration. Nancy Jefferson MD LAB CYTOLOGY ORDERABLES Fi nal Result * Screening Mammogram Bilateral W Vladislav (05/29/2020 6:56 AM CDT) Anatomical Region Laterality Modality Breast Bilateral Mammography 05/29/2020 7:12 AM CDT Narrative 05/29/2020 8:19 AM CDT Patient Name: HONGTORRI Ordering Dr: Marshal Merritt MD D.O.B: 1975 Exam Date: 05/29/20 0656 Age: 45 Sex: Female MR#: [id number] Loc: RADIOLOGY REPORT Order #[id number] [facility] Jann Bilat Screening 3D Signed - [...] mammogram, 10/05/2018 mammogram, and 01/20/2018 mammogram - [facility]. BREAST TISSUE: The tissue of both breasts [...] Electronically signed by: Neo Jeffries rl/:05/29/2020 08:19:44 Lead Applications Developer: Tabatha Jarquin (R)), [facility] letter sent: Additional Imaging Reading location: BI-RADS: 0 Additional Imaging Evaluation Needed REPORT ELECTRONICALLY SIGNED IN OTHER VENDOR SYSTEM Resulting Agency Comment O Procedure Note Neo Almanzar MD - 05/29/2020 Patient Name: TORRI HONG Dr: Marshal Merritt MD D.O.B: 1975 Exam Date: 05/29/20 0656 Age: 45 Sex: Female MR#: [id number] Loc: RADIOLOGY REPORT Order #[id number] [facility] Jann Bilat Screening 3D Signed - [...] 02/24/2019 mammogram,10/05/2018 mammogram, and 01/20/2018 mammogram - [facility]. BREAST TISSUE: The tissue of both breasts [...] Electronically signed by: Neo Jeffries rl/:05/29/2020 08:19:44 Lead Applications Developer: Tabatha BERG (R)(M), [facility] letter sent: Additional Imaging Reading location: BI-RADS: 0 Additional Imaging Evaluation Needed REPORT ELECTRONICALLY SIGNED IN OTHER VENDOR SYSTEM Marshal Merritt MD IM MAMMO PROCEDURES F inal Result from Last 3 Months or Most Recently Relevant to Health Maintenance Insurance PENDING SALE TO [employer] Advance Directives For more information, please contact: [phone] * Full Code (Latest Code Status on File) Date Activated Date Inactivated Comments 03/10/2024 12:35 PM 03/10/2024 8:09 PM Care Teams Tower Supervisor Relationship Specialty Start Date End Date Kyle Nolan PA PCP - General Family Medicine 06/27/20 Abram Antunez MD [address] [facility] [address] [place], [place] [id number] Surgeon Surgery 06/28/20 Fidelia Horton MD [address] [place] [address] Fee Clerk Obstetrics and Gynecology 01/22/22 Macario Crowley MD PhD [address] [facility], [facility] [address] [place] [address] Medical Oncologist/Toy Department Manager Medical Oncology 06/20/22 Jj Jones MD [address] [place] [address] Surgeon General Surgery 12/29/22 Chary Davidson MD [address] [place] [address] Radiation Oncologist Radiation Oncology 12/15/23
--- OUTSIDE RECORDS SUMMARY | 2024-10-01 14:12 | XMS_ITS | Encounter Summary ---
Author Organization [facility] Address [address] [place] [address] Phone Care Team Providers Care Vendor Management Associate Name Role Phone Kyle Nolan Primary Care Provider [phone] Abram Antunez MD Unavailable [phone] Theo Smis MD PhD Unavailable [phone] Chary Davidson MD Unavailable [phone] Marshal Merritt MD Unavailable [phone] Sita Cadet MD Unavailable [phone] Fidelia Horton MD Unavailable [phone] Macario Crowley MD PhD Unavailable Jj Jones MD Unavailable [phone] Chary Davidson MD Unavailable [phone] Encounter Details Date Type Department Care Team (Latest Contact Info) Description 07/06/2020 Orders Only [facility] Scanning, Provider [...] on file 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 Gender Identity Not on file Sexual Orientation Not on file documented as of this encounter Plan of Treatment Not on file documented as of this encounter Procedures Procedure Name Priority Date/Time Associated Diagnosis Comments SCAN - LABS 07/06/2020 documented in this encounter Results * SCAN - LABS (07/06/2020) Provider Scanning Final Result documented in this encounter Visit Diagnoses Not on filedocumented in this encounter Care Teams Vendor Management Associate Relationship Specialty Start Date End Date Kyle Nolan PA PCP - General Family Medicine 06/27/20 Abram Antunez MD [address] [place] [id number] Surgeon Surgery 06/28/20 Theo Sims MD PhD [address] [place] [id number] Medical Oncologist/Spareribs Trimmer Medical Oncology 06/28/20 08/06/21 Chary Davidson MD [address] [place] [address] [phone] Radiation Oncologist Radiation Oncology 03/18/21 Marshal Merritt MD [address] [phone] Consulting Physician Obstetrics and Gynecology 03/18/21 01/21/22 Sita Cadet MD [address] [facility] [address] [place] [address] Medical Oncologist/Spareribs Trimmer Medical Oncology 12/19/21 12/28/22 Fidelia Horton MD [address] [facility] [address] [facility] [address] [place] [address] Comptometrist Obstetrics and Gynecology 01/22/22 Macario Crowley MD PhD [address] [facility], [facility] [address] [place] [address] Medical Oncologist/Spareribs Trimmer Medical Oncology 06/20/22 Jj Jones MD [address] [place] [address] [address] [place] [address] Surgeon General Surgery 12/29/22 [place] [address] [place] [address] [address] [place], [place] [phone] Radiation Oncologist Radiation Oncology 12/15/23 documented as of this encounter
--- OUTSIDE RECORDS SUMMARY | 2024-10-01 14:12 | XMS_ITS ---
Author Organization [facility] at the Medical Office Building Address [address] [place] [address] Care Team Providers Care Meter Inspector Name Role Phone Kyle Nolan Primary Care Provider [phone] Abram Antunez MD Unavailable [phone] Fidelia Horton MD Unavailable [phone] Macario Crowley MD PhD Unavailable Jj Jones MD Unavailable [phone] Chary Davidson MD Unavailable [phone] Active Problems Problem Noted Date Diagnosed Date Hyperleukocytosis 10/22/2022 Mouth sore secondary to chemotherapy 10/22/2022 Periodic fever (CMS/HCC) 10/22/2022 Acute non-recurrent maxillary sinusitis 10/23/19 23 Assessment & Plan (10/22/2022 3:42 PM CUSHION WORKER): Saline and meds as ordered Personal history of radiation therapy 06/24/2021 Persons encountering health services in other specified circumstances 11/28/2020 Malignant neoplasm of upper- inner quadrant of left breast in female, estrogen receptor positive (CMS/HCC) 06/27/2020 Cancer Staging:Pathologic stage from 11/13/2020:No Stage Recommended(ypT2, pN3, cM0, G2, ER+, NE+, HER2-) - Signed by Chary Davidson MD on 03/18/2021 Routine general medical exam ination at a health care facility 09/01/2019 Assessment & Plan (11/27/2021 9:09 AM CDT): HEALTHCARE MAINTENANCE updated, EKG NSR, cleared for surgery Current Oncology Plans Zoledronic Acid (ZOMETA) Infusion* Plan Start Date:07/09/2021 Plan Provider:Macario Crowley MD PhD Linked Problems Malignant neoplasm of upper- inner quadrant of left breast in female, estrogen receptor positive (HCC)Persons encountering health services in other specified circumstances Treatment Medications No medications scheduled. Past Plans Line Care Plan Name Start Date Discontinue Date Treatment Medications Discontinue Reason Plan Provider IV MAINTENANCE THERAPY PLAN 01/02/2021 06/20/2022 No medications scheduled. Therapy Complete Macario Crowley MD PhD Oncology Chemotherapy Treatment Plan Name Start Date Discontinue Date Treatment Medications Discontinue Reason Plan Provider Cycles Goserelin 84 Day Cycles - Breast - Changed to q3mo from [id number] on 05/13/21 0 05/18/2024 goserelin (ZOLADEX) Protocol Amendment/[facility] Macario Crowley MD PhD 23 of 26 cycles started Oncology Treatment (2) Plan Name Start Date Discontinue Date Treatment Medications Discontinue Reason Plan Provider Cycles Abemaciclib PO 28 Day Cycles - Breast 021 05/18/2024 abemaciclib (VERZENIO) Therapy Complete Theo Sims MD PhD Treatment not started TC: (DOCEtaxel / Cyclophospham kim) 21 Day Cycles - Breast 12/13/19 21 04/08/2021 cycloPHOSphamide IVPB in 250 mL (vial 200 mg/mL)([id number])DOCEt jean paul (TAXOTERE) IVPB in 250 mL (vial 20mg/mL) Therapy Complete Theo Sims MD PhD 4 of 4 cycles started Radiation Treatments * Plan Last Treated On Elapsed Days Fractions Treated Prescribed Fraction Dose Prescribed Total Dose L CW BOLUS 05/24/2021 42 13 200 cGy 2,600 cGy L CW NO BOLUS 05/24/2021 42 12 200 cGy 2,400 cGy LCW SCAR BST 05/24/2021 42 5 200 cGy 1,000 c Gy Reference Point Last Treated On Elapsed Days Session Dose Total Dose LT CW SCAR 05/24/2021 42 0 cGy 1,000 cGy [id number] 05/24/2021 42 0 cGy 5,000 cGy Resolved Problems Problem Noted Date Diagnosed Date Resolved Date Malignant neoplasm of female breast 10/22/2022 12/01/2023
[2024-10-01 14:18] VITALS: BP 124/62; PULSE 87; RESP 18; TEMP 36.4; O2SAT 99
--- NOTE | 2024-10-01 14:20 | ED.FEMALEGU ---
HPI - Female Genitourinary General Chief complaint: Urogenital-Female Stated complaint: UTI Time Seen by Provider: 10/01/24 14:09 Source: patient Mode of arrival: ambulatory Limitations: no limitations History of Present Illness HPI Narrative: Patient is a 49-year-old female who presents with urgency and frequency this morning. Patient had telehealth visit 2 weeks ago and was prescribed Macrobid for UTI. Patient states the symptoms are not as bad as they got last time. Denies any fever, chills, nausea, vomiting, diarrhea, low back pain. MD elicited complaint: dysuria Related Data Home Medications ?Medication ?Instructions ?Recorded ?Confirmed ?Last Taken ?Type anastrozole 1 mg tablet 1 tablet DAILY 01/21/22 11/04/22 Unknown History Allergies Allergy/AdvReac Type Severity Reaction Status Date / Time Penicillins Allergy Mild Rash Verified 10/01/24 14:36 Sulfa (Sulfonamide Allergy Mild Rash Verified 10/01/24 14:36 Antibiotics) codeine AdvReac Intermediate Abdominal Verified 10/01/24 14:36 Pain Review of Systems Review of Systems: All systems reviewed & are unremarkable except as noted in HPI and below Constitutional: Constitutional: Denies chills, Denies fever(s), Denies headache(s), Denies malaise and Denies weakness Eyes: Eyes: Denies change in vision, Denies eye discharge and Denies irritation ENT: Denies otalgia, Denies headache(s), Denies nasal congestion, Denies nasal discharge, Denies sinus pain and Denies sore throat Cardiovascular: Cardiovascular: Denies chest pain, Denies edema, Denies palpitations and Denies dyspnea Respiratory: Respiratory: Denies cough and Denies dyspnea Gastrointestinal: Gastrointestinal: Denies abdominal pain, Denies diarrhea, Denies nausea and Denies vomiting Genitourinary: Genitourinary: Denies hematuria, Reports nocturia, Denies dysuria, Denies flank pain and Reports urinary urgency Musculoskeletal: Musculoskeletal: Denies back pain and Denies numbness Integumentary/Breasts: Skin/Breast: Denies pruritus and Denies rash Neurologic: Denies headache(s), Denies numbness and Denies weakness Psychiatric: Psychiatric: Reports no additional psychiatric complaints Endocrine: Endocrine: Denies palpitations PMFSH Past Medical History Medical History Breast cancer, left breast chemotherapy GERD (gastroesophageal reflux disease) Surgical History Surgical History History of bilateral mastectomy left axillary lymph nodes, left breast cancer reconstruction History of nasal surgery deviated septum Social History Social History Smoking status: Never smoker Alcohol intake: current Alcohol use details: rare Substance use: never Living arrangements: with family Gender identity (if verbalized by the patient): Female Spiritual care concerns: No Comments At time of signature, agree with nursing past medical, surgical, social and family history. There is no relevant family history pertinent to the presenting complaint. Exam Const: General: cooperative, healthy appearing, comfortable, no acute distress and well nourished Nutritional Appearance: well nourished Orientation/consciousness: patient oriented x3 HENMT: Head: normocephalic and atraumatic Ears: external ears normal Face/Nose/Sinus: Normal external nose present, Normal nares present and normal facial exam Face and sinus: normal facial exam Eyes: General: appearance normal, both eyes and all related structures Pupils: Equal, round and reactive pupils present EOM: EOMs intact bilaterally Neck: Neck: normal visual inspection, full ROM and supple Chest: Chest palpation & inspection: normal inspection of the chest Resp: Effort & Inspection: normal respiratory effort and able to speak in complete sentences Cardio: Rate: regular rate Rhythm: regular rhythm GI: Inspection: normal to inspection GI Palp: No abdominal tenderness and Yes Soft to palpation : General: Yes no CVA tenderness Back/Spine/Pelvis: Back: no CVA tenderness Skin: General skin exam: normal color and no rashes or lesions noted Neuro: General: patient oriented x3 and moves all extremities Cranial nerves: Yes Equal, round and reactive pupils present Extrem: General: normal to inspection and full ROM Psych: Appearance: grossly normal and well kempt Course Course Emergency Course: Patient is aware of diagnosis, understands and agrees to treatment plan. Anticipatory guidance given. Patient agrees to follow-up as directed and is aware of reasons to seek care at the emergency department. Portions of this record may have been created with voice recognition software Level of Care: Express Care Visit Vital Signs Vital signs: Vital Signs Temperature 36.4 C 10/01/24 14:18 Pulse Rate 87 10/01/24 14:18 Respiratory Rate 18 10/01/24 14:18 Blood Pressure 124/62 10/01/24 14:18 Pulse Oximetry 99 10/01/24 14:18 Oxygen Delivery Room Air 10/01/24 14:18 Temperature 36.4 C 10/01/24 14:18 Pulse Rate 87 10/01/24 14:18 Respiratory Rate 18 10/01/24 14:18 Blood Pressure 124/62 10/01/24 14:18 Pulse Oximetry 99 10/01/24 14:18 Oxygen Delivery Room Air 10/01/24 14:18 Reviewed MDM - Female Genitourinary MDM Narrative Medical decision making narrative: Exam findings and UA show probable UTI; patient is non-toxic appearing and is in no distress. No CMT, adnexal tenderness, or evidence of pelvic etiology. Patient is appropriate for outpatient treatment and follow-up. Differential Diagnosis Differential diagnosis: Likely urinary tract infection, bacterial vaginosis, trichomoniasis, cervicitis, vaginitis and cystitis Medical Records Attestation: I reviewed the patient's medical records. Lab Data Attestation: I reviewed the patient's lab results. Labs: Lab Results 10/01/24 Range/Units 14:24 POC Urine Color Light/pale POC Urine Clarity Cloudy POC Urine pH 5.5 POC Ur Specif [place] 1.005 POC Urine Protein Negative (Negative) POC Ur Glucose (UA) Negative (Negative) POC Urine Ketones Negative (Negative) POC Urine Blood Trace (Negative) POC Urine Nitrite Negative (Negative) POC Urine Bilirubin Negative (Negative) POC Urine Urobilinogen 0.2 POC U Leukocyte Esteras 3+ (Negative) Discharge Plan Discharge Clinical Impression: Urinary tract infection Qualifiers: Urinary tract infection type: acute cystitis Hematuria presence: without hematuria Qualified Code(s): N30.00 - Acute cystitis without hematuria Patient Disposition: Home, Self-Care Condition: Stable Instructions: Urinary Tract Infection in Women (DC) Additional Instructions: We will send a urine culture to the lab, based on your symptoms and urine dip we will start treatment today. If culture comes back and bacteria is not susceptible to antibiotic, your prescription may change. Your symptoms should improve within a day of starting antibiotics, but you should finish all the antibiotic pills you get. Otherwise your infection might come back Continue with increased water intake. Take Tylenol or ibuprofen as needed for pain or fever. Follow-up with primary care provider for urine recheck or see ER visit if condition worsens with high fever, nausea, vomiting, severe back pain Patient Language: Wolof Prescriptions: New cephalexin 500 mg capsule 500 mg PO BID 5 Days Qty: 10 0RF No Action anastrozole 1 mg tablet 1 tablet DAILY Follow-up/Referrals: An,Kyle Merino PA-C [Primary Care Provider] - 3 Days Time of Disposition: 14:44
[2024-10-01 14:26] LABS: EDUAAPPEAR Cloudy; EDUABILI Negative (Negative); EDUABLOOD Trace (Negative); EDUACOLOR1 Light/Pale; EDUAGLUCOSE Negative (Negative); EDUAKETONE Negative (Negative); EDUALEUKO 3+ (Negative); EDUANITRATE Negative (Negative); EDUAPH 5.5; EDUAPROTEIN Negative (Negative); EDUASPGRAVITY 1.005; EDUAUROBILI 0.2
== END 2024-10-01 14:47 | disposition home or self-care (01) ==
PROVIDERS: Emergency Provider Nurse Practitioner Family; PCP Physician Assistant
DX: N30.00 Acute cystitis without hematuria (principal); K21.9 Gastro-esophageal reflux disease without esophagitis; Z85.3 Personal history of malignant neoplasm of breast; Z90.13 Acquired absence of bilateral breasts and nipples
CPT/HCPCS: 81003; 87086; 99213; G0463

== ENCOUNTER 2024-10-27 18:44 | Emergency (ER) | payer BC, SELFPAY ==
--- OUTSIDE RECORDS SUMMARY | 2024-10-27 18:46 | XMS_ITS ---
Author Organization [facility] at the Medical Office Building Address [address] [place] [address] Care Team Providers Care Golf Player Assistant Name Role Phone Kyle Nolan Primary Care Provider [phone] Abram Antunez MD Unavailable [phone] Fidelia Horton MD Unavailable + [phone] Macario Crowley MD PhD Unavailable Jj Jones MD Unavailable [phone] Chary Davidson MD Unavailable [phone] Active Problems Problem Noted Date Diagnosed Date Hyperleukocytosis 10/22/2022 Mouth sore secondary to chemotherapy 10/22/2022 Periodic fever 10/22/2022 Acute non-recurrent maxillary sinusitis 10/23/19 23 Assessment & Plan (10/22/2022 3:42 PM INSTALLER APPRENTICE): Saline and meds as ordered Personal history of radiation therapy 06/24/2021 Persons encountering health services in other specified circumstances 11/28/2020 Malignant neoplasm of upper- inner quadrant of left breast in female, estrogen receptor positive (CMS/HCC) 06/27/2020 Cancer Staging:Pathologic stage from 11/13/2020:No Stage Recommended(ypT2, pN3, cM0, G2, ER+, RI+, HER2-) - Signed by Chary Davidson MD on 03/18/2021 Routine general medical exam ination at a health care facility 09/01/2019 Assessment & Plan (11/27/2021 9:09 AM CDT): HEALTHCARE MAINTENANCE updated, EKG NSR, cleared for surgery Current Treatment and Therapy Plans Zoledronic Acid (ZOMETA) Infusion* Plan Start Date:07/09/2021 Plan Provider:Macario Crowley MD PhD Linked Problems Malignant neoplasm of upper- inner quadrant of left breast in female, estrogen receptor positive (HCC)Persons encountering health services in other specified circumstances Treatment Medications No medications scheduled. Past Treatment and Therapy Plans Line Care Plan Name Start Date Discontinue Date Treatment Medications Discontinue Reason Plan Provider IV MAINTENANCE THERAPY PLAN 01/02/2021 06/20/2022 No medications scheduled. Therapy Complete Macario Crowley MD PhD Oncology Chemotherapy Treatment Plan Name Start Date Discontinue Date Treatment Medications Discontinue Reason Plan Provider Cycles Goserelin 84 Day Cycles - Breast - Changed to q3mo from [email or web address] on 05/13/21 0 05/18/2024 goserelin (ZOLADEX) Protocol Amendment/[facility] Macario Crowley MD PhD 23 of [...] of 4 cycles started Radiation Treatments * Course C1 L CW 202004/01/2021 - 05/24/2021 Treatment Period Energy Fraction Dose Fractions Total Dose Plans Planned L CW BOLUS 04/01/2021 - 05/24/2021 200 13 / 2,600 L CW NO BOLUS 04/02/2021 - 05/24/2021 200 12 / 2,400 LCW SCAR BST 05/07/2021 - 05/24/2021 200 5 / 1,000 Reference Points Delivered LT CW SCAR 05/07/2021 - 05/24/2021 1,000 PTV_5000_eval 04/01/2021 - 05/24/2021 5,000 Resolved Problems Problem Noted Date Diagnosed Date Resolved Date Malignant neoplasm of female breast 10/22/2022 12/01/2023
--- OUTSIDE RECORDS SUMMARY | 2024-10-27 18:46 | XMS_ITS | Encounter Summary ---
Author Organization [facility] Address [address] [place] [address] Phone Care Team Providers Care Woodworker Name Role Phone Kyle Nolan Primary Care Provider [phone] JUSTYN Graves Jr., Robert James Primary Care Provide r Kyle Nolan Primary Care Provider [phone] Abram Antunez MD Unavailable [phone] Theo Sims MD PhD Unavailable [phone] Chary Davidson MD Unavailable +[phone] Marshal Merritt MD Unavailable +[phone] Sita Cadet MD Unavailable + [phone] Fidelia Horton MD Unavailable + [phone] Macario Crowley MD PhD Unavailable Jj Jones MD Unavailable [phone] Chary Davidson MD Unavailable [phone] Encounter Details Date Type Department Care Team [...] on file 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 Gender Identity Not on file Sexual [...] on filedocumented in this encounter Care Teams Woodworker Relationship Specialty Start Date End Date Kyle Nolan PA PCP - General 10/05/18 06/24/20 Burton Graves Jr., PA PCP - General 06/25/20 06/26/20 Kyle Nolan PA PCP - General Family Medicine 06/27/20 Abram Antunez MD [address] [place] [address] [id number] Surgeon Surgery 06/28/20 Theo Sims MD PhD [address] [place] [address] 069929 Medical Oncologist/Baggage And Mail Agent Medical Oncology 06/28/20 08/06/21 Chary Davidson MD [address] [place] [address] [id number] Radiation Oncologist Radiation Oncology 03/18/21 Marshal Merritt MD [address] [facility] [address] [place] [address] Consulting Physician Obstetrics and Gynecology 03/18/21 01/21/22 Sita Cadet MD [address] [facility] [address] [place] [address] Medical Oncologist/Baggage And Mail Agent Medical Oncology 12/19/21 12/28/22 Fidelia Horton MD [address] [facility] [address] [place] [address] Radar Tester Obstetrics and Gynecology 01/22/22 Macario Crowley MD PhD [address] [facility] MEDICAL ONCOLOGY, [facility] [address]A, [address], [address] [place] [address] Medical Oncologist/Baggage And Mail Agent Medical Oncology 06/20/22 Jj Jones MD [facility] [address] [place], [place] [id number] Surgeon General Surgery 12/29/22 Chary Davidson MD [address] [place] [address] [address] [place], [place] [address] Radiation Oncologist Radiation Oncology 12/15/23 documented as of this encounter
--- OUTSIDE RECORDS SUMMARY | 2024-10-27 18:46 | XMS_ITS | Referral Summary ---
Author Organization [facility] at the Medical Office Building Address [facility] [place] [address] Care Team Providers Care Motor Coach Supervisor Name Role Phone An Kyle Wilber ALEJANDRA Primary Care Provider [phone] Abram Antunez MD Unavailable [phone] Fidelia Horton MD Unavailable + [phone] Macario Crowley MD PhD Unavailable Jj Jones MD Unavailable [phone] Chary Davidson MD Unavailable [phone] Encounters Date Type Department Care Team Description 09/14/2024 6:20 PM LABEL PRINTER E-Visit [facility] Virtual Care [address] [place] [address] Evelyne Nunez MD E-Visit for Urinary Tract Infection 09/14/2024 Patient Self-Triage [facility] [address] [place] [address] Mychart, Generic Provider from Last [...] MOUTH DAILY 30 tablet 3 4 Active Active Problems Problem Noted Date Diagnosed Date Hyperleukocytosis 10/22/2022 Mouth sore secondary to chemotherapy 10/22/2022 Periodic fever 10/22/2022 Acute non-recurrent maxillary sinusitis 10/23/19 23 Assessment & Plan (10/22/2022 3:42 PM LABEL PRINTER): Saline and meds as ordered Personal history of radiation therapy 06/24/2021 Persons encountering health services in other specified circumstances 11/28/2020 Malignant neoplasm of upper- inner quadrant of left breast in female, estrogen receptor positive (CMS/HCC) 06/27/2020 Cancer Staging:Pathologic stage from 11/13/2020:No Stage Recommended(ypT2, pN3, cM0, G2, ER+, NV+, HER2-) - Signed by Chary Davidson MD on 03/18/2021 Routine general medical exam ination at a health care facility 09/01/2019 Assessment & Plan (11/27/2021 9:09 AM CDT): HEALTHCARE MAINTENANCE updated, EKG NSR, cleared for surgery Resolved Problems Problem Noted Date Diagnosed Date Resolved Date Malignant neoplasm of female breast 10/22/2022 12/01/2023 Immunizations Immunization Administration Dates Next Due Influenza, Quadrivalent, Jaquelin [...] on file 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 LABEL PRINTER Gender Identity Not on file Sexual Orientation Not on file Last Filed Vital Signs Vital Sign Reading Time Taken Comments Blood Pressure 135/47 06/29/2024 3:54 PM LABEL PRINTER Pulse 86 06/29/2024 3:54 PM LABEL PRINTER Temperature 36.8 C (98.2 F) 05/20/2024 4:09 PM CDT Respiratory Rate 18 05/20/2024 4:09 PM CDT Oxygen Saturation 100% 06/29/2024 3:54 PM LABEL PRINTER Inhaled Oxygen Concentration - - Weight 77.1 kg (170 lb) 06/29/2024 3:54 PM LABEL PRINTER Height 180.3 cm (5' 10.98 ) 03/25/2024 1:25 PM C DT Body Mass Index 23.72 03/25/2024 1:25 PM CDT Plan of Treatment Not on file Medical Devices Implanted Type Area Publication Distributor Device Identifier Shelf Expiration Date Model / Serial / Lot [employer] Implant Breast High Profile Smooth Memorygel Boost 740cc Gel [id number] - [id number] Implanted:Qty: 1 on 03/18/2022 by Alex Carranza, DO at [facility] Right: Breast [employer] 12/02/2026 [id number] / / [employer] Implant Breast High Profile Smooth Memorygel Boost 685cc Gel [id number] - [id number] Implanted:Qty: 1 on 03/18/2022 by Alex Carranza, DO at [facility] Left: Breast [employer] 12/29/2026 [id number] / / Procedures Procedure Name Priority Date/Time [...] results best viewed via link to PDF [facility] [place] [address] Note to Patients: This report may contain [...] Gender: F : 1975 (Age: 48) Address: [address] [place] [address] [place] [address] [facility] #: [id number] Service: Surgery Location: Patient Type: [facility] OUTP Taken: 03/10/2024 Received: 03/10/2024 Accessioned: 03/10/2024 [...] this test have been verified by the [facility] Molecular Infectious Disease laboratory. Correlate with reported cytology results, as applicable. Interpretive data last revised 23 This specimen has been rescreened in accordance with this laboratory's Diesel Pile Hammer Operator Program. /03/18/2024 11:57 SURINDER Viveros(ASCP) Report Electronically [...] clinical information and biopsy results as indicated. CMS Clinical Laboratory Improvement Amendments (CLIA) mandate that cytologic and histologic results be correlated for laboratory chief quality officer & improvement standards. FOR ALL HIGH-GRADE CASES [...] determined by the Surgical Pathology Department at [facility] as part of an ongoing production quality analyst program and in compliance with federally [...] determined by the Surgical Pathology Department of [facility]. It has not been cleared or approved by the U. S. Food and Drug Administration. Nacny Jefferson MD LAB CYTOLOGY ORDERABLES Fi nal Result * Screening Mammogram Bilateral W Vladislav (05/29/2020 6:56 AM CDT) Anatomical Region Laterality Modality Breast Bilateral Mammography 05/29/2020 7:12 AM CDT Narrative 05/29/2020 8:19 AM CDT Patient Name: TORRI HONG Ordering Dr: Marshal Merritt MD D.O.B: 1975 Exam Date: 05/29/20 0656 Age: 45 Sex: Female MR#: [id number] Loc: RADIOLOGY REPORT Order #[id number] [facility] Jann Bilat Screening 3D Signed - MG [...] mammogram, 10/05/2018 mammogram, and 01/20/2018 mammogram - [facility]. BREAST TISSUE: The tissue of both breasts [...] Electronically signed by: Neo Jeffries rl/:05/29/2020 08:19:44 Steam Fitter: Tabatha Jarquin (R)), [facility] letter sent: Additional Imaging Reading location: BI-RADS: 0 Additional Imaging Evaluation Needed REPORT ELECTRONICALLY SIGNED IN OTHER VENDOR SYSTEM Resulting Agency Comment O Procedure Note Neo Almanzar MD - 05/29/2020 Patient Name: TORRI HONG Dr: Marshal Merritt MD D.O.B: 1975 Exam Date: 05/29/20 0656 Age: 45 Sex: Female MR#: [id number] Loc: RADIOLOGY REPORT Order #[id number] [facility] Jann Bilat Screening 3D Signed - MG [...] 02/24/2019 mammogram,10/05/2018 mammogram, and 01/20/2018 mammogram - [facility]. BREAST TISSUE: The tissue of both breasts [...] Electronically signed by: Neo Jeffries rl/:05/29/2020 08:19:44 Steam Fitter: Tabatha BERG (R)(M), [facility] letter sent: Additional Imaging Reading location: BI-RADS: 0 Additional Imaging Evaluation Needed REPORT ELECTRONICALLY SIGNED IN OTHER VENDOR SYSTEM Marshal Merritt MD IM MAMMO PROCEDURES F inal Result from Last 3 Months or Most Recently Relevant to Health Maintenance Insurance [facility] Advance Directives For more information, please contact: [phone] * Full Code (Latest Code Status on File) Date Activated Date Inactivated Comments 03/10/2024 12:35 PM 03/10/2024 8:09 PM Care Teams Motor Coach Supervisor Relationship Specialty Start Date End Date Kyle Nolan PA PCP - General Family Medicine 06/27/20 Abram Antunez MD [address] [facility] [address] [place], [place] [address] Surgeon Surgery 06/28/20 Fidelia Horton MD [address] [place] [address] Oil Separator Obstetrics and Gynecology 01/22/22 Macario Crowley MD PhD [address] [facility] MEDICAL ONCOLOGY, [facility] [address], [address], [address] [place] [address] Medical Oncologist/Remedial Project Manager Medical Oncology 06/20/22 Jj Jones MD [address] [place] [address] Surgeon General Surgery 12/29/22 Chary Davidson MD [address] [place] [address] Radiation Oncologist Radiation Oncology 12/15/23
--- OUTSIDE RECORDS SUMMARY | 2024-10-27 18:46 | XMS_ITS | Encounter Summary ---
Author Organization [facility] Address [address] [place] [address] Phone Care Team Providers Care Aqua Ammonia Operator Name Role Phone Kyle Nolan Primary Care Provider [phone] Abram Antunez MD Unavailable [phone] Theo Sims MD PhD Unavailable +[phone] Chary Davidson MD Unavailable [phone] Marshal Merritt MD Unavailable [phone] Sita Cadet MD Unavailable +[phone] Fidelia Horton MD Unavailable +[phone] Macario Crowley MD PhD Unavailable Jj Jones MD Unavailable [phone] Chary Davidson MD Unavailable [phone] Encounter Details Date Type Department Care Team [...] on file 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 Gender Identity Not on file Sexual Orientation [...] on filedocumented in this encounter Care Teams Aqua Ammonia Operator Relationship Specialty Start Date End Date Kyle Nolan PA PCP - General Family Medicine 06/27/20 Abram Antunez MD [address] [place] [address] [id number] Surgeon Surgery 06/28/20 Theo Sims MD PhD [address] [place] [address] 639449 Medical Oncologist/Home Housekeeper Medical Oncology 06/28/20 08/06/21 Chary Davidson MD [address] [place] [address] 293099 Radiation Oncologist Radiation Oncology 03/18/21 Marshal Merritt MD [address] [id number] Consulting Physician Obstetrics and Gynecology 03/18/21 01/21/22 Sita Cadet MD [address] [facility] [address] [place] [address] Medical Oncologist/Home Housekeeper Medical Oncology 12/19/21 12/28/22 Fidelia Horton MD [address] [facility] 200 [facility] 200 [place] [address] Senior Government Program Analyst Obstetrics and Gynecology 01/22/22 Macario Crowley MD PhD [address] [facility] DIV MEDICAL ONCOLOGY, [facility] [address]A, [address], [address] [place] [address] Medical Oncologist/Home Housekeeper Medical Oncology 06/20/22 Jj Jones MD [address] [place] [address] [address] [place] [address] Surgeon General Surgery 12/29/22 [place] [address] [place] [address] [address] [place], [place] [id number] Radiation Oncologist Radiation Oncology 12/15/23 documented as of this encounter
--- OUTSIDE RECORDS SUMMARY | 2024-10-27 18:46 | XMS_ITS | Encounter Summary ---
Author Organization [facility] Address [address] [place] [address] Phone Care Team Providers Care Stenotypist Name Role Phone Kyle Nolan Primary Care Provider [phone] JUSTYN Graves Jr., Robert James Primary Care Provide r Kyle Nolan Primary Care Provider [phone] Abram Antunez MD Unavailable [phone] Theo Sims MD PhD Unavailable [phone] Chary Davidson MD Unavailable [phone] Marshal Merritt MD Unavailable [phone] Sita Cadet MD Unavailable + [phone] Fidelia Horton MD Unavailable + [phone] Macario Crowley MD PhD Unavailable Jj Jones MD Unavailable [phone] Chary Davidson MD Unavailable [phone] Encounter Details Date Type Department Care Team [...] on file 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 BUSINESS ASSISTANT Gender Identity Not on file Sexual Orientation [...] on filedocumented in this encounter Care Teams Stenotypist Relationship Specialty Start Date End Date Kyle Nolan PA PCP - General 10/05/18 06/24/20 Burton Graves Jr., PA PCP - General 06/25/20 06/26/20 Kyle Nolan PA PCP - General Family Medicine 06/27/20 Abram Antunez MD [address] [place] [address] [id number] Surgeon Surgery 06/28/20 Theo Sims MD PhD [address] [place] [address] [id number] Medical Oncologist/Forepart Rasper Medical Oncology 06/28/20 08/06/21 Chary Davidson MD [address] [place] [address] [id number] Radiation Oncologist Radiation Oncology 03/18/21 Marshal Merritt MD [address] [facility] [address] [place] [address] Consulting Physician Obstetrics and Gynecology 03/18/21 01/21/22 Sita Cadet MD [address] [facility] [address] [place] [address] Medical Oncologist/Forepart Rasper Medical Oncology 12/19/21 12/28/22 Fidelia Horton MD [address] [facility] [address] [place] [address] Lumber Checker Obstetrics and Gynecology 01/22/22 Macario Crowley MD PhD [address] [facility] DIV MEDICAL ONCOLOGY, [facility] [address]A, [address]B, [address] [place] [address] Medical Oncologist/Forepart Rasper Medical Oncology 06/20/22 Jj Jones MD [facility] [address] [place], [place] [phone] Surgeon General Surgery 12/29/22 Chary Davidson MD [address] [place] [address] [address] [place], [place] [address] Radiation Oncologist Radiation Oncology 12/15/23 documented as of this encounter
--- OUTSIDE RECORDS SUMMARY | 2024-10-27 18:46 | XMS_ITS | Clinical Summary ---
Author Organization [facility] at the Medical Office Building Address [address] [place] [address] Care Team Providers Care Relationship Manager Name Role Phone Kyle Nolan Primary Care Provider [phone] Abram Antunez MD Unavailable [phone] Fidelia Horton MD Unavailable [phone] Macario Crowley MD PhD Unavailable Jj Jones MD Unavailable [phone] Chary Davidson MD Unavailable [phone] Allergies Active Allergy Reactions Criticality Noted [...] 23 Assessment & Plan (10/22/2022 3:42 PM PADDING MACHINE OPERATOR): Saline and meds as ordered Personal history of radiation therapy 06/24/2021 Persons encountering health services in other specified circumstances 11/28/2020 Malignant neoplasm of upper- inner quadrant of left breast in female, estrogen receptor positive (CMS/HCC) 06/27/2020 Cancer Staging:Pathologic stage from 11/13/2020:No Stage Recommended(ypT2, pN3, cM0, G2, ER+, NH+, HER2-) - Signed by Chary Davidson MD on 03/18/2021 Routine general medical exam ination at a health care facility 09/01/2019 Assessment & Plan (11/27/2021 9:09 AM CDT): HEALTHCARE MAINTENANCE updated, EKG NSR, cleared for surgery Resolved Problems Problem Noted Date Diagnosed Date Resolved Date Malignant neoplasm of female breast 10/22/2022 12/01/2023 Encounters Date Type Department Care Team Description 09/14/2024 6:20 PM PADDING MACHINE OPERATOR E-Visit [facility] Virtual Care [address] [place] [address] Evelyne Nunez MD E-Visit for Urinary Tract Infection 09/14/2024 Patient Self-Triage [facility] [address] [place] [address] Mychart, Generic Provider from Last 3 Months Immunizations Immunization Administration Dates Next Due Influenza, [...] Breast cancer (HCC) History of chemotherapy last tx 2020 PONV (postoperative nausea and vomiting) no [...] on file 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 PADDING MACHINE OPERATOR Gender Identity Not on file Sexual [...] Comments Blood Pressure 135/47 06/29/2024 3:54 PM PADDING MACHINE OPERATOR Pulse 86 06/29/2024 3:54 PM PADDING MACHINE OPERATOR Temperature 36.8 C (98.2 F) 05/20/2024 4:09 PM CDT Respiratory Rate 18 05/20/2024 4:09 PM CDT Oxygen Saturation 100% 06/29/2024 3:54 PM PADDING MACHINE OPERATOR Inhaled Oxygen Concentration - - Weight 77.1 kg (170 lb) 06/29/2024 3:54 PM PADDING MACHINE OPERATOR Height 180.3 cm (5' 10.98 ) 03/25/2024 1:25 PM C DT Body Mass Index 23.72 03/25/2024 1:25 PM CDT Plan of Treatment Health Maintenance Due Date Last Done Comments Colon Cancer Screening-Colonoscopy 1975 Hepatitis C Screening 1975 Hepatitis B Screening 1993 Pneumococcal vaccine <65 (1 of 2 - PCV) 1994 Zoster Vaccine (1 of 2) 1994 Breast Cancer Screening-Mammogram 05/29/2021 05/29/2020, 02/24/2019, 01/20/2018, Additional history exists Depression Screening 11/27/2022 11/27/2021, 09/06/19 20 Regular Well Visit/Exam 18-64 03/24/2024, 11/27/2021, 09/06/2019 Influenza Vaccine (#1) 2024 06/27/2020 Cervical Cancer Screening 03/10/20252023, 03/10/2024, 02/04/2024, Additional history exists DTaP/Tdap/Td Vaccine (2 - Td or Tdap) 11/04/2032 11/04/2022 Medical Devices Implanted Type Area Pricing Specialist Device Identifier Shelf Expiration Date Model / Serial / Lot [employer] Implant Breast High Profile Smooth Memorygel Boost 740cc Gel [id number] - [id number] Implanted:Qty: 1 on 03/18/2022 by Alex Carranza, DO at [facility] Right: Breast [employer] 12/02/2026 [id number] / / [employer] Implant Breast High Profile Smooth Memorygel Boost 685cc Gel [id number] - [id number] Implanted:Qty: 1 on 03/18/2022 by Alex Carranza DO at [facility] Left: Breast [employer] 12/29/2026 [id number] / / Procedures Procedure Name Priority Date/Time [...] results best viewed via link to PDF [facility] [place], [place] [id number] Note to Patients: This report may contain [...] REPORT FINAL Patient Name: TORRI HONG Gender: Silvia : 1975 (Age: 48) Address: [address] [place] [id number] [facility] #: [id number] Service: Surgery Location: Patient Type: E [facility] Taken: 03/10/2024 Received: 03/10/2024 Accessioned: 03/10/2024 [...] this test have been verified by the [facility] Molecular Infectious Disease laboratory. Correlate with reported cytology results, as applicable. Interpretive data last revised 23 This specimen has been rescreened in accordance with this laboratory's School Physical Therapist Program. /03/18/2024 11:57 SURINDER Viveros(ASCP) Report Electronically [...] histologic results be correlated for laboratory quality engineer & improvement standards. FOR ALL HIGH-GRADE CASES [...] determined by the Surgical Pathology Department at [facility] as part of an ongoing quality compliance manager program and in compliance with federally mandated [...] determined by the Surgical Pathology Department of [facility]. It has not been cleared or approved by the U. S. Food and Drug Administration. Nancy Jefferson MD LAB CYTOLOGY ORDERABLES Fi nal Result * Screening Mammogram Bilateral W Vladislav (05/29/2020 6:56 AM CDT) Anatomical Region Laterality Modality Breast Bilateral Mammography 05/29/2020 7:12 AM CDT Narrative 05/29/2020 8:19 AM CDT Patient Name: OTRRI HONG Ordering Dr: Marshal Merritt MD D.O.B: 1975 Exam Date: 05/29/20 0656 Age: 45 Sex: Female MR#: [id number] Loc: RADIOLOGY REPORT Order #[id number] [facility] Jann Bilat Screening 3D Signed [...] mammogram, 10/05/2018 mammogram, and 01/20/2018 mammogram - [facility]. BREAST TISSUE: The tissue of both [...] Electronically signed by: Neo Jeffries rl/:05/29/2020 08:19:44 Duct Layer Helper: Tabatha BERG (Rafael)(Amy [facility] letter sent: Additional Imaging Reading location: BI-RADS: 0 Additional Imaging Evaluation Needed REPORT ELECTRONICALLY SIGNED IN OTHER VENDOR SYSTEM Resulting Agency Comment O Procedure Note Neo Almanzar MD - 05/29/2020 Patient Name: TORRI HONG Ericka Dr: Marshal Merritt MD D.O.B: 1975 Exam Date: 05/29/20 0656 Age: 45 Sex: Female MR#: [id number] Loc: RADIOLOGY REPORT Order #[id number] [facility] Jann Bilat Screening 3D Signed [...] 02/24/2019 mammogram,10/05/2018 mammogram, and 01/20/2018 mammogram - [facility]. BREAST TISSUE: The tissue of both [...] Electronically signed by: Neo Jeffries rl/:05/29/2020 08:19:44 Duct Layer Helper: Tabatha Dave RT (R)(M), [facility] letter sent: Additional Imaging Reading location: BI-RADS: 0 Additional Imaging Evaluation Needed REPORT ELECTRONICALLY SIGNED IN OTHER VENDOR SYSTEM Marshal Merritt MD IM MAMMO PROCEDURES F inal Result from Last 3 Months or Most Recently Relevant to Health Maintenance Insurance [facility] Advance Directives For more information, please contact: [phone] * Full Code (Latest Code Status on File) Date Activated Date Inactivated Comments 03/10/2024 12:35 PM 03/10/2024 8:09 PM Care Teams Relationship Manager Relationship Specialty Start Date End Date Kyle Nolan PA PCP - General Family Medicine 06/27/20 Abram Antunez MD [address] [place] [id number] Surgeon Surgery 06/28/20 Fidelia Horton MD [address] [facility] [address] [facility] [address] [place], [place] [id number] Bus Operator Obstetrics and Gynecology 01/22/22 Macario Crowley MD PhD [address] [facility], [address] [address] Medical Oncologist/Compensation Associate Medical Oncology 06/20/22 Jj Jones MD [address] [place] [address] [address] [place] [address] Surgeon General Surgery 12/29/22 Chary Davidson MD [address] [place] [id number] Radiation Oncologist Radiation Oncology 12/15/23
--- OUTSIDE RECORDS SUMMARY | 2024-10-27 18:46 | XMS_ITS | Clinical Summary ---
Author Organization [facility] Address [address] [place] [id number] Care Team Providers Care Fishing Vessel Operator Name Role Phone Kyle Nolan PA-C Primary Care Provider [phone] Allergies Active Allergy Reactions Criticality Noted Date [...] to complete this topic Insurance [place] [address] [facility] Care Teams Fishing Vessel Operator Relationship Specialty Start Date End Date Kyle Nolan PA-C PCP - General PHYSICIAN IT INFRASTRUCTURE ENGINEER 03/28/18
[2024-10-27 18:50] VITALS: BP 140/77; PULSE 89; RESP 18; TEMP 36.2; O2SAT 100
[2024-10-27 18:59] LABS: EDUAAPPEAR Cloudy; EDUABILI Negative (Negative); EDUABLOOD Trace (Negative); EDUACOLOR1 Light/Pale; EDUAGLUCOSE Negative (Negative); EDUAKETONE Negative (Negative); EDUALEUKO 1+ (Negative); EDUANITRATE Negative (Negative); EDUAPROTEIN Negative (Negative); EDUASPGRAVITY 1.005; EDUAUROBILI 0.2
--- NOTE | 2024-10-27 19:06 | ED.FEMALEGU ---
HPI - Female Genitourinary General Chief complaint: Urogenital-Female Stated complaint: UTI Time Seen by Provider: 10/27/24 19:06 Source: patient Mode of arrival: ambulatory Limitations: no limitations History of Present Illness HPI Narrative: 49-year-old female presents with complaint of urgency, frequency starting yesterday. No abdominal or back pain. Denies dysuria. Afebrile. Patient reports urinary tract infection 1 month ago. All systems reviewed and negative except as noted above. Related Data Home Medications ?Medication ?Instructions ?Recorded ?Confirmed ?Last Taken ?Type anastrozole 1 mg tablet 1 tablet DAILY 01/21/22 11/04/22 Unknown History Allergies Allergy/AdvReac Type Severity Reaction Status Date / Time Penicillins Allergy Mild Rash Verified 10/27/24 18:57 Sulfa (Sulfonamide Allergy Mild Rash Verified 10/27/24 18:57 Antibiotics) codeine AdvReac Intermediate Abdominal Verified 10/27/24 18:57 Pain Review of Systems Review of Systems: CONSTITUTIONAL: Denies fever, chills, or sweats. EYES: Denies visual changes, redness, or discharge. ENT: Denies rhinorrhea, congestion, sore throat, or otalgia. CARDIOVASCULAR: Denies chest pain, palpitations, or edema. RESPIRATORY: Denies cough or dyspnea. GASTROINTESTINAL: Denies abdominal pain, nausea, vomiting, or diarrhea. GENITOURINARY: Denies dysuria or hematuria. Reports urgency, frequency. SKIN: Denies rash or itching. MUSCULOSKELETAL: Denies back pain, joint pain, or myalgia. NEUROLOGIC: Denies headache, numbness, or weakness. PSYCHIATRIC: Denies anxiety or depression. All other systems reviewed are negative, except as documented in HPI. [facility] Past Medical History Medical History Breast cancer, left breast chemotherapy GERD (gastroesophageal reflux disease) Surgical History Surgical History History of bilateral mastectomy left axillary lymph nodes, left breast cancer reconstruction History of nasal surgery deviated septum Social History Social History Smoking status: Never smoker Alcohol intake: current Alcohol use details: rare Substance use: never Living arrangements: with family Gender identity (if verbalized by the patient): Female Spiritual care concerns: No Comments At time of signature, agree with nursing past medical, surgical, social and family history. There is no relevant family history pertinent to the presenting complaint. Exam Narrative: GENERAL: This is a well-nourished, well-developed patient, in no apparent distress. HEAD: normocephalic, atraumatic. EYES: PERRL. Sclera clear/white. Vision is grossly intact. EARS: External ears normal NOSE: External nose normal NECK: Neck supple, non-tender without lymphadenopathy, masses or thyromegaly. CARDIOVASCULAR: Regular rate and rhythm without murmurs, gallops, or rubs. RESPIRATORY: Clear to auscultation. Breath sounds equal bilaterally. No wheezes, rales, or rhonchi. SKIN: warm, Dry, intact with no suspicious lesions or rash, good texture and turgor. NEURO: awake, alert, and oriented to person, place and time. There were no obvious focal neurologic abnormalities. EXTREMITIES: No joint tenderness, effusion, or edema noted. Course Course Level of Care: Express Care Visit Vital Signs Vital signs: Vital Signs Temperature 36.2 C L 10/27/24 18:50 Pulse Rate 89 10/27/24 18:50 Respiratory Rate 18 10/27/24 18:50 Blood Pressure 140/77 10/27/24 18:50 Pulse Oximetry 100 10/27/24 18:50 Oxygen Delivery Room Air 10/27/24 18:50 Temperature 36.2 C L 10/27/24 18:50 Pulse Rate 89 10/27/24 18:50 Respiratory Rate 18 10/27/24 18:50 Blood Pressure 140/77 10/27/24 18:50 Pulse Oximetry 100 10/27/24 18:50 Oxygen Delivery Room Air 10/27/24 18:50 Reviewed MDM - Female Genitourinary MDM Narrative Medical decision making narrative: urinalysis 1+ leukocytes, trace blood. Discuss urine culture from October 01 with patient. Urine culture was no growth. Offered to treat patient with antibiotic or wait for urine culture results. Patient wants to take antibiotic now. 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 Patient is well-appearing, nontoxic. Please be advised this is a medical document. It is intended for zexn-oh-uaju communication. It is written in medical language and may contain unfamiliar abbreviations or verbiage. Medical documents are intended to carry relevant information, facts as evident, and the clinical opinion of the practitioner at the time of the encounter. This report may have been done utilizing a voice recognition system. Attempts have been made to correct errors. However, there may be uncorrected grammatical, spelling, and recognition errors present. The file time of this note does not necessarily represent the time of service. Lab Data Labs: Lab Results 10/27/24 Range/Units 18:56 POC Urine Color Light/pale POC Urine Clarity Cloudy POC Urine pH 6.0 POC Ur Specif [place] 1.005 POC Urine Protein Negative (Negative) POC Ur Glucose (UA) Negative (Negative) POC Urine Ketones Negative (Negative) POC Urine Blood Trace (Negative) POC Urine Nitrite Negative (Negative) POC Urine Bilirubin Negative (Negative) POC Urine Urobilinogen 0.2 POC U Leukocyte Esteras 1+ (Negative) Discharge Plan Discharge Clinical Impression: Urinary tract infection Patient Disposition: Home, Self-Care Condition: Stable Instructions: Antibiotic Form, Urinary Tract Infection in Women (ED) Additional Instructions: your urinalysis showed 1+ leukocytes and trace blood today. These results are concerning for urinary tract infection. A urine culture was ordered and results will take 48-72 hours. Take antibiotic as prescribed until gone. 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 Patient Language: Armenian Prescriptions: New cephalexin 500 mg capsule 500 mg PO Q8H 5 Days Qty: 15 0RF No Action anastrozole 1 mg tablet 1 tablet DAILY cephalexin 500 mg capsule 500 mg PO BID 5 Days Qty: 10 0RF Follow-up/Referrals: An,Kyle Merino PA-C [Primary Care Provider] - Time of Disposition: 19:18
== END 2024-10-27 19:24 | disposition home or self-care (01) ==
PROVIDERS: Emergency Provider Nurse Practitioner Family; PCP Physician Assistant
DX: N39.0 Urinary tract infection, site not specified (principal); Z85.3 Personal history of malignant neoplasm of breast
CPT/HCPCS: 81003; 87086; 99213; G0463